=== PATIENT | male | born 1990 | race Caucasian/White ===

== ENCOUNTER 2021-12-04 22:45 | Inpatient (IN) ==
[2021-12-04] MEDS ORDERED: 0.9 % Sodium Chloride 1,000 ML IVC ONE (23:27)
[2021-12-04] MEDS ORDERED: 0.9 % Sodium Chloride 1,000 ML ONE (23:28)
[2021-12-04] MEDS ORDERED: Metoclopramide 10 MG/2 ML VIAL IVP ONE (23:29)
[2021-12-04 23:50] LABS: INR 1.4; Prothrombin Time 15.7 Seconds (9.4-12.1)
[2021-12-04 23:53] LABS: Activated Partial Thrombo Time 29.1 Seconds (26.0-36.0)
[2021-12-05] MEDS ORDERED: 0.9 % Sodium Chloride 1,000 ML IVC ONE (00:05)
[2021-12-05 00:08] LABS: Albumin 2.4 g/dL (3.5-5.7); Albumin/Globulin Ratio 0.6 (1.1-2.2); Bilirubin,Direct 1.5 mg/dL (0.0-0.2); Bilirubin,Indirect 0.9 mg/dL (0.0-1.0); Bilirubin,Total 2.4 mg/dL (0.3-1.0); Calcium 8.2 mg/dL (8.6-10.3); Globulin 3.7 g/dL (2.4-3.5); Magnesium 2.1 mg/dL (1.6-2.6); Phosphorous 1.9 mg/dL (2.7-4.5); Potassium 3.1 mEq/L (3.5-5.1); Total Protein 6.1 g/dL (6.4-8.9); Troponin I 0.51 ng/mL (< 0.04)
[2021-12-05 00:42] LABS: Thyroid Stimulating Hormone 1.329 mcIU/mL (0.340-5.600)
[2021-12-05] MEDS ORDERED: Vancomycin 1,250 MG/262.5 ML IV.SOLN IVPB ONE (00:50)
[2021-12-05] MEDS ORDERED: cefTRIAXone 2,000 MG in 0.9 % Sodium Chloride Mini Bag 100 ML IVPB ONE (00:51)
[2021-12-05] MEDS ORDERED: Cefepime HCl 2,000 MG in 0.9 % Sodium Chloride Mini Bag 100 ML IVPB STA (00:55)
[2021-12-05 01:02] LABS: Basophils % 0.2 %; Eosinophils % 0.1 %; Mean Corpuscular Hemoglobin 31.3 pg (28.0-33.3)
[2021-12-05 01:04] LABS: Hematocrit 29.9 % (37.5-50.1); Hemoglobin 10.7 g/dL (12.9-16.9); Immature Granulocytes % 3.6 % (0-4); Immature Platelets 13.7 % (1.1-6.1); Lymphocytes # 1.5 K/mcL (0.6-4.6); Lymphocytes % 7.7 %; Mean Corpuscular HGB Conc 35.8 g/dL (31.6-35.5); Mean Corpuscular Volume 87.4 fL (83.0-100.0); Mean Platelet Volume 13.5 fL (9.4-12.4); Neutrophils # 15.9 K/mcL (1.6-8.9); Red Blood Count 3.42 M/mcL (4.19-5.50); Red Cell Distribution Width 13.4 % (11.5-14.5); Segmented Neutrophils % 83.4 %; White Blood Count 19.1 K/mcL (4.3-11.1)
[2021-12-05] MEDS ORDERED: 0.9 % Sodium Chloride 1,000 ML IV ONE (01:34)
[2021-12-05 01:39] LABS: Platelet Count 30 K/mcL (140-400)
[2021-12-05 01:40] LABS: Platelet Estimate Marked Decrease (Normal)
[2021-12-05 01:47] LABS: Amphetamine Screen,Urine Positive ng/mL (Cutoff=1000); Barbiturate Screen,Urine Negative ng/mL (Cutoff=200); Benzodiazepines Screen,Urine Negative ng/mL (Cutoff=200); Cannabinoid Screen,Urine Negative ng/mL (Cutoff = 50); Cocaine Screen,Urine Negative ng/mL (Cutoff= 300); Opiate Screen,Urine Negative ng/mL (Cutoff=300); Phencyclidine Screen,Urine Negative ng/mL (Cutoff=25)
[2021-12-05 02:01] LABS: VBG HCO3 20 mEq/L (21-27); VBG PCO2 34 mmHg (41-51); VBG PH 7.39 pH Units (7.32-7.42); VBG PO2 93 mmHg (25-50)
[2021-12-05] MEDS ORDERED: Ampicillin 2,000 MG in 0.9 % Sodium Chloride Mini Bag 100 ML IVPB ONE (02:01)
[2021-12-05 02:39] LABS: Bacteria,Urine Few per hpf (None-Few); Bilirubin,Urine Negative (Negative); Blood,Urine Moderate (Negative); Clarity,Urine Turbid (Clear); Color,Urine Yellow (Yellow); Glucose,Urine (UA) Normal (Normal); Granular Casts,Urine Few per lpf (None Seen); Hyaline Casts,Urine Moderate per lpf (None Seen); Ketones,Urine Negative (Negative); Leukocyte Esterase,Urine Small (Negative); Mucus,Urine Few per lpf (None-Few); Nitrite,Urine Negative (Negative); PH,Urine 5.5 pH Units (5.0-8.0); Protein,Urine 30 mg/dL (Neg-Trace); RBC,Urine 15-30 per hpf (0-3); Specific Gravity,Urine 1.014 (1.010-1.025); Squamous Epithelial Cell,Urine Few per hpf (None-Few); WBC,Urine 15-30 per hpf (0-3)
[2021-12-05] MEDS ORDERED: Isovue-370 500 ML BOTTLE IVP ONE (02:55)
[2021-12-05] MEDS ORDERED: SODIUM CHLORIDE 0.9% IVPB ONE (03:00)
[2021-12-05] MEDS ORDERED: ACYCLOVIR IVPB ONE (03:00)
[2021-12-05] MEDS ORDERED: 0.9 % Sodium Chloride 1,000 ML ONE (03:51)
[2021-12-05 04:50] LABS: Influenza A PCR Negative (Negative); Influenza B PCR Negative (Negative); Resp. Syncytial Virus PCR Negative (Negative)
[2021-12-05 04:55] LABS: SARS-CoV-2 by PCR (In House) Negative (Negative)
[2021-12-05] MEDS ORDERED: Norepinephrine 4 MG/254 ML IV.SOLN IVC SCH (05:30)
[2021-12-05] MEDS ORDERED: Perflutren Lipid Microsphere 1.3 ML in 0.9 % Sodium Chloride 8.7 ML IVP PRN ×2 (06:37→10:05)
[2021-12-05] MEDS ORDERED: Naloxone 0.4 MG/ML INJ IVP PRN (06:41)
[2021-12-05] MEDS ORDERED: Vancomycin (wt based) 1,000 MG VIAL IVPB SCH (07:00)
[2021-12-05] MEDS ORDERED: *HR* LORazepam 2 MG/ML VIAL IVP PRN ×2 (08:29)
[2021-12-05] MEDS: *HR* LORazepam 2 MG/ML VIAL IVP PRN (08:40)
[2021-12-05] MEDS ORDERED: levoFLOXacin 750 MG/150 ML 750 MG/150 ML BAG IVPB SCH ×2 (09:00)
[2021-12-05] MEDS: Dexmedetomidine HCl 400 MCG/100 ML MLS IVC SCH ×3 (09:25→22:19)
[2021-12-05] MEDS ORDERED: Dexmedetomidine HCl 400 MCG/100 ML MLS IVC ONE (09:25)
[2021-12-05 09:27] LABS: INR 1.4; Prothrombin Time 15.1 Seconds (9.4-12.1)
[2021-12-05 09:31] LABS: Alanine Aminotransferase 23 Units/L (7-52); Albumin 2.2 g/dL (3.5-5.7); Albumin/Globulin Ratio 0.7 (1.1-2.2); Alkaline Phosphatase 226 Units/L (34-104); Aspartate Amino Transferase 45 Units/L (13-39); BUN/Creatinine Ratio 36 (6-26); Bilirubin,Direct 1.5 mg/dL (0.0-0.2); Bilirubin,Indirect 0.9 mg/dL (0.0-1.0); Bilirubin,Total 2.4 mg/dL (0.3-1.0); Blood Urea Nitrogen 58 mg/dL (6-20); Calcium 7.8 mg/dL (8.6-10.3); Carbon Dioxide 25 mEq/L (23-29); Chloride 99 mEq/L (98-107); Globulin 3.3 g/dL (2.4-3.5); Glucose 139 mg/dL (70-105); Magnesium 2.1 mg/dL (1.6-2.6); Osmolality,Calculated 288 (280-300); Potassium 3.3 mEq/L (3.5-5.1); Sodium 130 mEq/L (136-145); Total Protein 5.5 g/dL (6.4-8.9); eGFR For African Americans > 60 (> 60); eGFR For Non-African Americans 50 (> 60)
[2021-12-05 09:45] LABS: Troponin I 0.31 ng/mL (< 0.04)
[2021-12-05] MEDS ORDERED: cefTRIAXone 2,000 MG in 0.9 % Sodium Chloride 20 ML IVP SCH (10:00)
[2021-12-05 10:18] LABS: Hepatitis B Surface Antigen Nonreactive (Nonreactive)
[2021-12-05 10:24] LABS: Mean Platelet Volume 13.4 fL (9.4-12.4); Red Cell Distribution Width 13.5 % (11.5-14.5)
[2021-12-05 10:26] LABS: Hematocrit 29.4 % (37.5-50.1); Hemoglobin 10.7 g/dL (12.9-16.9); Immature Platelets 13.6 % (1.1-6.1); Mean Corpuscular HGB Conc 36.4 g/dL (31.6-35.5); Mean Corpuscular Hemoglobin 31.6 pg (28.0-33.3); Mean Corpuscular Volume 86.7 fL (83.0-100.0); Monocytes # 0.2 K/mcL (0.0-1.3); Red Blood Count 3.39 M/mcL (4.19-5.50); White Blood Count 11.4 K/mcL (4.3-11.1)
[2021-12-05 10:30] LABS: Platelet Count 30 K/mcL (140-400)
[2021-12-05 10:47] LABS: Lymphocytes # 0.5 K/mcL (0.6-4.6); Neutrophils # 10.7 K/mcL (1.6-8.9)
[2021-12-05 10:48] LABS: Hepatitis B Core IgM Nonreactive (Nonreactive); Platelet Estimate Marked Decrease (Normal)
[2021-12-05 10:49] LABS: Hepatitis A Antibody IgM Nonreactive (Nonreactive)
[2021-12-05] MEDS: *HR* LORazepam 2 MG/ML VIAL IVP SCH ×4 (12:03→23:07)
[2021-12-05 12:36] LABS: Chlamydia Trachomatis DNA Ur NOT DETECTED (Not Detect)
[2021-12-05 12:43] LABS: A.calcoaceticus-baumannii cplx Not Detected (Not Detect); Bacteroides fragilis by PCR Not Detected (Not Detect); CTX-M ESBL Gene Not Detected (Not Detect); Enterobacter cloacae Cmplx PCR Not Detected (Not Detect); Enterococcus faecalis by PCR Not Detected (Not Detect); Enterococcus faecium by PCR Not Detected (Not Detect); Escherichia coli by PCR Not Detected (Not Detect); IMP Carbapenem-Resist Gene Not Detected (Not Detect); Klebs. pneumoniae group by PCR Not Detected (Not Detect); Klebsiella aerogenes by PCR Not Detected (Not Detect); Klebsiella oxytoca by PCR Not Detected (Not Detect); NDM Carbapenem-Resist Gene Not Detected (Not Detect); OXA-48-like Carbap-Resist Gene Not Detected (Not Detect); Proteus by PCR Not Detected (Not Detect); Pseudomonas aeruginosa by PCR Not Detected (Not Detect); Salmonella species by PCR Not Detected (Not Detect); Serratia marcescens by PCR DETECTED (Not Detect); Staph epidermidis by PCR Not Detected (Not Detect); Staph lugdunensis by PCR Not Detected (Not Detect); Staphylococcus aureus by PCR Not Detected (Not Detect); Staphylococcus by PCR Not Detected (Not Detect); Streptococcus agalactiae(B)PCR Not Detected (Not Detect); Streptococcus by PCR Not Detected (Not Detect); Streptococcus pneumoniae PCR Not Detected (Not Detect); Streptococcus pyogenes (A) PCR Not Detected (Not Detect); VIM Carbapenem-Resist Gene Not Detected (Not Detect); blaKPC Carbapenem-Resist Gene Not Detected (Not Detect)
[2021-12-05 12:44] LABS: Candida albicans by PCR Not Detected (Not Detect); Candida auris by PCR Not Detected (Not Detect); Candida glabrata by PCR Not Detected (Not Detect); Candida krusei by PCR Not Detected (Not Detect); Candida parapsilosis by PCR Not Detected (Not Detect); Candida tropicalis by PCR Not Detected (Not Detect); Crypto. neoformans/gattii PCR Not Detected (Not Detect); Stenotrophomonas maltophilia Not Detected (Not Detect)
[2021-12-05 13:02] LABS: Hepatitis C Virus Antibody Reactive (Nonreactive)
[2021-12-05] MEDS: Cefepime HCl 2,000 MG in 0.9 % Sodium Chloride 10 ML IVP SCH ×2 (15:58→23:14)
[2021-12-05] MEDS: Acyclovir 700 MG in D5% in Water 250 ML IVPB SCH ×2 (15:59→23:31)
[2021-12-05] MEDS ORDERED: Acyclovir 750 MG in D5% in Water 250 ML IVPB SCH (17:00)
[2021-12-05] MEDS: Thiamine (B-1) 100 MG, Folic Acid 1 MG, MVI, adult with vitamin K 10 ML in 0.9 % Sodi... IVPB SCH (17:04)
[2021-12-05] MEDS ORDERED: 0.9 % Sodium Chloride 250 ML ONE (22:47)
[2021-12-06] MEDS: *HR* LORazepam 2 MG/ML VIAL IVP PRN ×2 (00:12→00:41)
[2021-12-06 01:05] LABS: ABG Base Excess -2 mEq/L (-2 to 3); ABG HCO3 21 mEq/L (21-27); ABG Oxygen Saturation 91 % (95-98); ABG PCO2 28 mmHg (35-45); ABG PH 7.48 pH Units (7.32-7.45); ABG PO2 55 mmHg (85-104); ABG TCO2 22 mEq/L (20-26)
[2021-12-06 01:20] LABS: Basophils % 0.1 %; Hematocrit 33.6 % (37.5-50.1); Hemoglobin 12.1 g/dL (12.9-16.9); Immature Granulocytes % 0.9 % (0-4); Lymphocytes # 0.9 K/mcL (0.6-4.6); Lymphocytes % 5.2 %; Mean Corpuscular Hemoglobin 31.3 pg (28.0-33.3); Mean Platelet Volume 12.1 fL (9.4-12.4); Monocytes # 0.4 K/mcL (0.0-1.3); Monocytes % 2.1 %; Neutrophils # 15.6 K/mcL (1.6-8.9); Red Blood Count 3.86 M/mcL (4.19-5.50); Red Cell Distribution Width 13.4 % (11.5-14.5); Segmented Neutrophils % 91.7 %
[2021-12-06 01:24] LABS: VBG Ionized Calcium 1.14 mmol/L (1.15-1.35)
[2021-12-06 01:32] LABS: Platelet Count 37 K/mcL (140-400)
[2021-12-06 01:35] LABS: Alanine Aminotransferase 19 Units/L (7-52); Albumin 2.1 g/dL (3.5-5.7); Albumin/Globulin Ratio 0.6 (1.1-2.2); Alkaline Phosphatase 201 Units/L (34-104); Aspartate Amino Transferase 35 Units/L (13-39); BUN/Creatinine Ratio 47 (6-26); Bilirubin,Direct 0.7 mg/dL (0.0-0.2); Bilirubin,Indirect 0.7 mg/dL (0.0-1.0); Bilirubin,Total 1.4 mg/dL (0.3-1.0); Blood Urea Nitrogen 53 mg/dL (6-20); Calcium 8.1 mg/dL (8.6-10.3); Carbon Dioxide 20 mEq/L (23-29); Chloride 105 mEq/L (98-107); Globulin 3.6 g/dL (2.4-3.5); Glucose 118 mg/dL (70-105); Magnesium 2.3 mg/dL (1.6-2.6); Osmolality,Calculated 291 (280-300); Potassium 3.7 mEq/L (3.5-5.1); Sodium 133 mEq/L (136-145); Total Protein 5.7 g/dL (6.4-8.9); eGFR For African Americans > 60 (> 60); eGFR For Non-African Americans > 60 (> 60)
[2021-12-06] MEDS: Dexmedetomidine HCl 400 MCG/100 ML MLS IVC SCH ×4 (03:15→16:48)
[2021-12-06] MEDS: *HR* LORazepam 2 MG/ML VIAL IVP SCH ×4 (04:54→17:02)
[2021-12-06] MEDS: Cefepime HCl 2,000 MG in 0.9 % Sodium Chloride 10 ML IVP SCH (07:43)
[2021-12-06] MEDS: Acyclovir 700 MG in D5% in Water 250 ML IVPB SCH ×2 (07:50→15:38)
[2021-12-06] MEDS ORDERED: Isovue-370 500 ML BOTTLE IVP ONE (10:41)
[2021-12-06] MEDS ORDERED: Morphine Sulfate 2 MG/ML SYRINGE IVP ONE ×2 (10:44→15:08)
[2021-12-06] MEDS ORDERED: Norepinephrine 4 MG/254 ML IV.SOLN IVC SCH (11:00)
[2021-12-06] MEDS ORDERED: Lidocaine -MPF 1% 5 ML AMPUL INFILT ONE (11:06)
[2021-12-06] MEDS ORDERED: Vancomycin 1,250 MG/262.5 ML IV.SOLN IVPB SCH (15:00)
[2021-12-06] MEDS ORDERED: Ipratropium/Albuterol Neb 3 ML ONE (15:13)
[2021-12-06] MEDS ORDERED: Furosemide 40 MG/4 ML VIAL IVP ONE (15:14)
[2021-12-06 15:23] LABS: ABG Base Excess -2 mEq/L (-2 to 3); ABG HCO3 22 mEq/L (21-27); ABG Oxygen Saturation 95 % (95-98); ABG PCO2 35 mmHg (35-45); ABG PO2 77 mmHg (85-104); ABG TCO2 23 mEq/L (20-26)
[2021-12-06] MEDS ORDERED: Ertapenem 1,000 MG in 0.9 % Sodium Chloride Mini Bag 100 ML IVPB SCH (15:28)
[2021-12-06] MEDS ORDERED: Morphine Sulfate 2 MG/ML SYRINGE IVP PRN (15:33)
[2021-12-06] MEDS ORDERED: Midazolam HCl 50 MG/50 ML IV.SOLN IVC SCH (16:45)
[2021-12-06] MEDS ORDERED: Cisatracurium 200 MG in 0.9 % Sodium Chloride 80 ML IVC SCH (16:45)
[2021-12-06 17:24] LABS: ABG Base Excess -1 mEq/L (-2 to 3); ABG HCO3 24 mEq/L (21-27); ABG Oxygen Saturation 100 % (95-98); ABG PCO2 40 mmHg (35-45); ABG PH 7.38 pH Units (7.32-7.45); ABG PO2 558 mmHg (85-104); ABG TCO2 25 mEq/L (20-26); Blood Gas Modality ASSIST CONTROL; Blood Gas VT 470 cc
[2021-12-06] MEDS ORDERED: 0.9 % Sodium Chloride 250 ML IVC SCH (17:30)
[2021-12-06 17:51] VITALS: TEMP 99.6
[2021-12-06 18:23] VITALS: BP 117/40; PULSE 92; O2SAT 97
[2021-12-06] MEDS: Thiamine (B-1) 100 MG, Folic Acid 1 MG, MVI, adult with vitamin K 10 ML in 0.9 % Sodi... IVPB SCH (18:26)
[2021-12-06] MEDS ORDERED: *HR* Etomidate 40 MG/20 ML VIAL IVP ONE (19:09)
[2021-12-06] MEDS ORDERED: *HR* Rocuronium Bromide 100 MG/10 ML VIAL IVP ONE (19:09)
== END 2021-12-06 19:10 | disposition short-term general hospital (02) | DRG 720 ==
LOC: EMEROOARM 22:45 → ICNU 22:45 → OBSVTOIN 12-05 06:35 → ICNU 12-05 08:00
PROVIDERS: ADMIT Internal Medicine; ATTEND Internal Medicine